=== PATIENT | male | born 1945 | race Caucasian/White ===

== ENCOUNTER 2025-01-24 12:12 | Outpatient (CLI) | payer OTHER, SELFPAY | END 2025-01-24 12:13 | disposition home or self-care (01) | LOC: RAD 12:14 | PROVIDERS: Visit Provider Chiropractor | DX: I31.9 Disease of pericardium, unspecified (principal); I51.7 Cardiomegaly; I35.0 Nonrheumatic aortic (valve) stenosis; I34.0 Nonrheumatic mitral (valve) insufficiency | CPT/HCPCS: 93308; 93321; 93325 ==